=== PATIENT | male | born 1995 ===

== ENCOUNTER 2021-05-16 22:58 | Outpatient (CLI) | payer SELFPAY | END 2021-05-16 22:59 | disposition EMS.NT | LOC: EMS 22:58 | DX: R07.9 Chest pain, unspecified (principal); M54.50 Low back pain, unspecified ==

== ENCOUNTER 2021-11-25 13:58 | Outpatient (CLI) | payer SELFPAY | END 2021-11-25 13:59 | disposition critical access hospital (66) | LOC: EMS 13:58 | DX: S09.93XA Unspecified injury of face, initial encounter (principal); S40.812A Abrasion of left upper arm, initial encounter; S00.412A Abrasion of left ear, initial encounter; W17.89XA Other fall from one level to another, initial encounter; Y93.H3 Activity, building and construction; Y92.008 Other place in unspecified non-institutional (private) residence as the place of occurrence of the external cause | CPT/HCPCS: A0425; A0427 ==

== ENCOUNTER 2022-05-20 23:12 | Outpatient (CLI) | payer SELFPAY | END 2022-05-20 23:13 | disposition left against medical advice (07) | LOC: EMS 23:12 | DX: R55 Syncope and collapse (principal) ==